=== PATIENT | female | born 1970 | race Caucasian/White ===

== ENCOUNTER 2020-02-19 13:00 | Outpatient (RCR) | payer BC, SELFPAY | END 2020-02-19 23:55 | disposition home or self-care (01) | LOC: HO.PAOS 13:00 | PROVIDERS: Visit Provider Counselor Mental Health | DX: F31.81 Bipolar II disorder (principal); F10.21 Alcohol dependence, in remission | CPT/HCPCS: 90834 ==

== ENCOUNTER 2020-03-07 13:36 | Outpatient (REF) | payer BC, SELFPAY | END 2020-03-07 13:37 | disposition home or self-care (01) | LOC: HO.LAB 13:36 | PROVIDERS: PCP Internal Medicine; Visit Provider Internal Medicine | DX: Z20.828 Contact with and (suspected) exposure to other viral communicable diseases (principal) | CPT/HCPCS: C9803; U0003 ==

== ENCOUNTER 2020-03-14 15:47 | Outpatient (REF) | payer BC, SELFPAY | END 2020-03-14 15:48 | disposition home or self-care (01) | LOC: HO.LAB 15:47 | PROVIDERS: Visit Provider Internal Medicine | DX: Z20.828 Contact with and (suspected) exposure to other viral communicable diseases (principal) | CPT/HCPCS: C9803; U0003 ==

== ENCOUNTER 2020-07-02 14:19 | Outpatient (REF) | payer BC, SELFPAY ==
--- NOTE | ~2020-07-02 | XR_ITS ---
EXAMINATION: XR HIP, RIGHT CLINICAL INFORMATION: Pain right hip COMPARISON: None TECHNIQUE: Frontal view pelvis and AP and frog-lateral projections right hip are obtained for 3 views. FINDINGS: Bony mineralization appears normal. The pelvis shows no fracture or destructive process. The SI joints and pubis show no diastases. There may be degenerative disc changes at the lumbosacral junction. There are calcified phleboliths lower right pelvis. Bowel gas unremarkable. Soft tissue planes about the bilateral hips is symmetric. Right hip shows no fracture or dislocation or destructive process. No focal joint narrowing or erosive change or chondrocalcinosis. There is small bone island trochanteric region. Punctate mineralization adjacent to the lesser trochanter may be related to calcific tendinosis ileus psoas. Femoral artery, there are 2 punctate mineralization adjacent to right ischial tuberosity which may represent calcific tendinosis hamstrings. XR/XR hip RT w PEL1V IMPRESSION: 1. Probable degenerative disc changes lumbosacral junction. 2. Punctate mineralization at right hip lesser trochanter and adjacent to the ischial tuberosity which may be related to calcific tendinosis.
== END 2020-07-02 14:20 | disposition home or self-care (01) ==
LOC: HO.HOSX 14:19
PROVIDERS: Visit Provider Orthopaedic Surgery
DX: M25.551 Pain in right hip (principal)
CPT/HCPCS: 73502

== ENCOUNTER → 2020-07-03 10:07 | Outpatient (BNVA) | payer BC, SELFPAY | PROVIDERS: PCP Internal Medicine; Visit Provider Orthopaedic Surgery | DX: M25.551 Pain in right hip (principal) ==

== ENCOUNTER → 2022-04-01 14:20 | Outpatient (BNVA) | payer OTHER, SELFPAY | PROVIDERS: PCP Internal Medicine; Visit Provider Physician Assistant Medical | DX: Z77.21 Contact with and (suspected) exposure to potentially hazardous body fluids (principal) | CPT/HCPCS: 36415; 84450; 84460; 86706; 86803; 87389; 99204 ==

== ENCOUNTER 2023-03-25 10:18 | Emergency (ER) | payer BC, SELFPAY ==
--- NOTE | ~2023-03-25 | CT_ITS ---
CT HEAD WITHOUT IV CONTRAST CT CERVICAL SPINE WITHOUT IV CONTRAST CT MAXILLOFACIAL WITHOUT IV CONTRAST INDICATION: Head injury. Pain. COMPARISON: None available TECHNIQUE: Multidetector CT acquisitions of the head, maxillofacial region, and cervical spine were obtained without IV contrast. Multiplanar reformats were acquired and utilized for image interpretation. This CT examination was performed using dose optimization techniques as appropriate, variously including the following: *Automated exposure control *Adjustment of mA and/or kV according to patient size (this includes techniques or standardized protocols for targeted exams where dose is matched to indication/reason for exam; i.e. extremities or head) *Use of iterative reconstruction technique FINDINGS: HEAD: There is no intracranial hemorrhage, hydrocephalus, extra-axial surface collection, midline shift, or other herniation pattern. Glynn to white matter differentiation is diffusely maintained without evidence of an evolved acute territorial infarct. The basilar cisterns are preserved. No significant soft tissue abnormality. No acute osseous abnormality. The paranasal sinuses and the mastoid air cells are well aerated. MAXILLOFACIAL: There are probable chronic nasal bone fractures without overlying soft tissue swelling that can be clinically correlated. No definite acute maxillofacial fractures. CERVICAL SPINE: Reversal the cervical lordosis. The vertebral body heights are maintained. There is moderate to severe disc volume loss and endplate spurring at C5-C6 and C6-C7. There are no acute fractures and there are no acute subluxations. There is advanced left-sided hypertrophic facet arthropathy at C7-T1. The craniocervical junction is unremarkable. CT/CT facial bones wo IV con IMPRESSION: - No acute intracranial abnormality. - No acute osseous abnormality within the cervical spine. Cervical spondylosis. - There are probable chronic nasal bone fractures without overlying soft tissue swelling that can be clinically correlated. No definite acute maxillofacial fractures.
--- NOTE | ~2023-03-25 | CT_ITS ---
CT HEAD WITHOUT IV CONTRAST CT CERVICAL SPINE WITHOUT IV CONTRAST CT MAXILLOFACIAL WITHOUT IV CONTRAST INDICATION: Head injury. Pain. COMPARISON: None available TECHNIQUE: Multidetector CT acquisitions of the head, maxillofacial region, and cervical spine were obtained without IV contrast. Multiplanar reformats were acquired and utilized for image interpretation. This CT examination was performed using dose optimization techniques as appropriate, variously including the following: *Automated exposure control *Adjustment of mA and/or kV according to patient size (this includes techniques or standardized protocols for targeted exams where dose is matched to indication/reason for exam; i.e. extremities or head) *Use of iterative reconstruction technique FINDINGS: HEAD: There is no intracranial hemorrhage, hydrocephalus, extra-axial surface collection, midline shift, or other herniation pattern. Glynn to white matter differentiation is diffusely maintained without evidence of an evolved acute territorial infarct. The basilar cisterns are preserved. No significant soft tissue abnormality. No acute osseous abnormality. The paranasal sinuses and the mastoid air cells are well aerated. MAXILLOFACIAL: There are probable chronic nasal bone fractures without overlying soft tissue swelling that can be clinically correlated. No definite acute maxillofacial fractures. CERVICAL SPINE: Reversal the cervical lordosis. The vertebral body heights are maintained. There is moderate to severe disc volume loss and endplate spurring at C5-C6 and C6-C7. There are no acute fractures and there are no acute subluxations. There is advanced left-sided hypertrophic facet arthropathy at C7-T1. The craniocervical junction is unremarkable. CT/CT cervical spine wo IV con IMPRESSION: - No acute intracranial abnormality. - No acute osseous abnormality within the cervical spine. Cervical spondylosis. - There are probable chronic nasal bone fractures without overlying soft tissue swelling that can be clinically correlated. No definite acute maxillofacial fractures.
[2023-03-25 10:25] VITALS: BP 133/75; PULSE 83; RESP 18; TEMP 36.6; O2SAT 99; BMI 20.2
--- NOTE | 2023-03-25 10:29 | ECG_ITS ---
Test Reason : syncope Blood Pressure : / mmHG Vent. Rate : 068 BPM Atrial Rate : 068 BPM P-R Int : 128 ms QRS Dur : 084 ms QT Int : 382 ms P-R-T Axes : 070 059 076 degrees QTc Int : 406 ms Normal sinus rhythm Normal ECG When compared with ECG of 24-OCT-2019 14:03, No significant change was found Referred By: Generic ED Physician Electronically Signed By:ABRAHAM RAHMAN MD
[2023-03-25 10:42] LABS: MANUAL DIFF FLAG NO
[2023-03-25 10:50] LABS: Basophils Percent Auto 0.4 % (0-2); Eosinophils Absolute Auto 0.1 X10*3/uL (0.0-0.4); Eosinophils Percent Auto 1.2 % (0-4); Hematocrit 43.6 % (37.0-47.0); Hemoglobin 14.3 g/dl (12.0-16.0); Imm Gran Abs Auto 0.03 X10*3/uL (0.00-0.03); Imm Gran Pct Auto 0.4 % (0.0-0.4); Lymphocytes Absolute Auto 1.5 X10*3/uL (1.2-4.9); Lymphocytes Percent Auto 20.8 % (20-40); Mean Corpuscular HGB Conc 32.8 g/dl (31.0-35.0); Mean Corpuscular Hemoglobin 28.9 pg (27.0-33.0); Mean Corpuscular Volume 88.3 fL (80.0-98.0); Mean Platelet Volume 9.3 fL (9.4-12.3); Monocytes Absolute Auto 0.4 X10*3/uL (0.1-1.2); Monocytes Percent Auto 5.5 % (2-11); Neutrophils Absolute Auto 5.2 x10*3/uL (2.0-8.3); Neutrophils Percent Auto 71.7 % (45-73); Platelet Count 245 X10*3/uL (160-400); Red Blood Count 4.94 X10*6/uL (4.20-5.50); Red Cell Distribution Width 13.2 % (11.0-16.0); White Blood Count 7.3 X10*3/uL (4.8-10.8)
[2023-03-25 10:58] LABS: Anion Gap 12 (12-20); Blood Urea Nitrogen 15 mg/dL (9-16); Calcium 10.2 mg/dL (8.4-10.2); Carbon Dioxide 28 mmol/L (22-29); Chloride 104 mmol/L (96-108); Creatinine Clr Calc Pharmacy 64.4; Estimated Glomerular Filt Rate > 60; Glucose Random 79 mg/dL (60-115); Sodium 140 mmol/L (135-145)
[2023-03-25 11:06] LABS: Troponin-I High Sensitivity < 2.7 ng/L (<3.5-17.0)
--- NOTE | 2023-03-25 11:17 | PC.NURSE ---
PT STATES THAT SHE GOT UP TO USE THE BATHROOM LEFT TO GO TO THE KITCHEN AND WOKE UP ON THE FLOOR. PT STATES THAT THE LAST TIME THIS HAPPENED WAS 3 YRS AGO. PT STATES THAT SPOUSE AND KIDS WERE AT HOME IN BED AT THE TIME. PT WOKE UP ON THE L SIDE OF HER HEAD. PT HAS BLOOD OVER HER R EYEBROW/HEMATOMA AND L FOREHEAD HEMATOMA.
[2023-03-25 11:21] VITALS: PULSE 70; O2SAT 97
--- NOTE | 2023-03-25 11:38 | ED.GENADULT ---
HPI - General Adult General Chief complaint: Syncope Stated complaint: head inj fall at home Time Seen by Provider: 03/25/23 11:37 Source: patient Mode of arrival: ambulatory Limitations: no limitations History of Present Illness HPI narrative: Patient is a 52 year old assigned female at with no reported medical history presenting to the emergency department today after a syncopal episode. Patient states that she woke up to use the bathroom, had a bowel movement, stood up and passed out. Patient states that she hit her face on the floor and is having a headache. Patient denies any dizziness, lightheadedness, abdominal pain, nausea, vomiting, fever, chills, blurry vision, double vision, loss of vision, chest pain, difficulty breathing, shortness of breath, back pain, night sweats, pain with urination, increased urinary frequency, increased urinary urgency, blood in her urine or stool, bowel incontinence, bladder incontinence, bowel retention, bladder retention, or any other complaints at this time. Onset (ago): hour(s) Location: head and face Severity: mild Severity scale (1-10): 3 Relieving factors: none Exacerbating factors: none Associated symptoms: syncope Treatments prior to arrival: none Related Data Home Medications Medication Instructions Recorded Confirmed gabapentin 100 mg capsule 100 mg PO BEDTIME 07/03/20 lamotrigine 25 mg tablet (Lamictal) 25 mg PO Q OTHER DAY 07/03/20 ziprasidone HCl 20 mg capsule 20 mg PO BID 07/03/20 (Geodon) Allergies Allergy/AdvReac Type Severity Reaction Status Date / Time No Known Allergies Allergy Verified 03/25/23 10:25 [No Known Allergies*] Review of Systems Constitutional: Constitutional: Reports no additional constitutional complaints, Denies chills, Denies fever(s), Reports headache(s) and Denies night sweats Eyes: Eyes: Reports no additional eye complaints, Denies blurry vision, Denies change in vision, Denies diplopia, Denies eye discharge and Denies loss of vision ENT: Denies dizziness and Reports headache(s) Cardiovascular: Cardiovascular: Reports no additional cardiovascular complaints, Denies chest pain, Denies lightheadedness, Denies Loss of Consciousness and Denies dyspnea Respiratory: Respiratory: Reports no additional respiratory complaints and Denies dyspnea Gastrointestinal: Gastrointestinal: Reports no additional gastrointestinal complaints, Denies abdominal pain, Denies melena, Denies hematochezia, Denies change in bowel habits and Denies change in stool character Genitourinary: Genitourinary: Denies hematuria, Denies urinary frequency, Denies dysuria, Denies urinary incontinence, Denies urinary hesitancy and Denies urinary urgency Musculoskeletal: Musculoskeletal: Reports no additional musculoskeletal complaints, Denies numbness and Denies tingling Neurologic: Denies dizziness, Reports headache(s), Denies loss of vision, Denies numbness and Denies tingling Psychiatric: Psychiatric: Reports no additional psychiatric complaints Endocrine: Endocrine: Reports no additional endocrine complaints Hematologic/Lymphatic: Hematologic/Lymphatic: Reports no additional hematologic/lymphatic complaints Allergic/Immunologic: Allergic/Immunologic: Reports no additional allergic/immunologic complaints [facility] Past Medical History Attestation statement: The following information was validated with the patient. Source: old records reviewed and nursing notes reviewed Medical History Depression Bilateral hip pain Social History Social History Smoked in Last 30 Days: No Use of substances other than those prescribed or required for medical reasons: No Advance Directives: No Advance Directives Information Provided: No Patient : No Current occupational status: employed Current occupation: R.N/ rt hand Physical Exam ED Vital Signs: Vital Signs - 24 hr 03/25/23 10:25 03/25/23 11:21 03/25/23 12:38 Temperature 97.8 F 98.5 F Pulse Rate 83 61 Respiratory Rate 18 16 Blood Pressure 133/75 120/73 Pulse Oximetry 99 97 96 Oxygen Delivery Method Room Air Room Air Room Air 03/25/23 14:32 Temperature 98.7 F Pulse Rate 60 Respiratory Rate 16 Blood Pressure 116/71 Pulse Oximetry 95 Oxygen Delivery Method Room Air BMI result Body Mass Index 20.2 Const General: cooperative, no acute distress, alert and awake Nutritional Appearance: well nourished Orientation/consciousness: patient oriented x3 Limitations: no limitations HENMT Ears: hearing grossly normal bilaterally and external ears normal General nose exam: Normal external nose present, no nasal discharge noted and no epistaxis Face and sinus: Yes abrasion (to the corner of the right upper eye lid) Mouth: Normal oral and palatal mucosa present, no drooling and no muffled voice Eyes General: appearance normal, both eyes and all related structures Periorbital: periorbital findings normal Eyelids: Yes eyelids normal Conjunctivae: conjunctivae normal Pupils: Equal, round and reactive pupils present EOM: EOMs intact bilaterally Neck Neck: Yes normal visual inspection, Yes full ROM and Yes no lymphadenopathy Chest Chest palpation & inspection: normal inspection of the chest Resp Effort & Inspection: normal respiratory effort and able to speak in complete sentences GI Inspection: Yes normal to inspection Neuro General: patient oriented x3 and moves all extremities Cranial nerves: Yes Equal, round and reactive pupils present Cognition (Neuro): normal cognition Motor exam (neuro): 5/5 motor strength present throughout Sensory Exam: Normal double simultaneous stimulation for sensation Coordination: [id number] test normal Extrem General: Yes normal to inspection, Yes full ROM and Yes capillary refill normal Psych Appearance: grossly normal Mental Status: mental status grossly normal Affect: normal affect Attitude: cooperative Thought process: Normal thought process present Thought content: Normal thought content present Insight: Good insight present (Psych) Medical Decision Making Medical Decision Making MDM Narrative: Patient is a 52 year old assigned female at with no reported medical history presenting to the emergency department today with facial pain after a vasovagal syncopal episode. Patient's physical exam was as noted in the physical exam portion of this note. Patient's blood work was unremarkable. Patient's EKG was unremarkable. Patient's head, C-Spine, and facial CTs showed no acute process. I explained my physical exam findings as well as all test results to the patient. I answered all questions asked by the patient. I stressed the importance of the patient taking her medication as prescribed. I stressed the importance of the patient following up with her primary care provider. I stressed the importance of the patient returning to the emergency department immediately if her symptoms were to worsen or if she were to develop any dizziness, shortness of breath, difficulty breathing, chest pain, blurry vision, loss of vision, nausea, vomiting, abdominal pain, fever, chills, back pain, or any other complaints. Patient verbalized agreement and understanding with this treatment plan and discharge. Differential Diagnosis Differential Diagnoses: The differential diagnosis associated with the presentation includes Fall Syncope Vasovagal syncope Facial trauma Concussion Admission/Observation Consideration of admission/observation: Escalation of care including admission/observation considered Patient would have been admitted to the hospital had her work up had any findings where hospital admission was appropriate and her clinical presentation warranted hospital admission. Lab Data MDM Lab Attestation statement: I reviewed the patient's lab results. My interpretation of these studies and their corresponding values is that they are grossly normal. 03/25/23 10:37 03/25/23 10:37 Labs: Lab Results 03/25/23 03/25/23 Range/Units 10:37 12:06 WBC 7.3 (4.8-10.8) X10*3/uL RBC 4.94 (4.20-5.50) X10*6/uL Hgb 14.3 (12.0-16.0) g/dl Hct 43.6 (37.0-47.0) % MCV 88.3 (80.0-98.0) fL MCH 28.9 (27.0-33.0) pg MCHC 32.8 (31.0-35.0) g/dl RDW 13.2 (11.0-16.0) % Plt Count 245 (160-400) X10*3/uL MPV 9.3 L (9.4-12.3) fL Immature Gran % (Auto) 0.4 (0.0-0.4) % Neut % (Auto) 71.7 (45-73) % Lymph % (Auto) 20.8 (20-40) % Lea % (Auto) 5.5 (2-11) % Eos % (Auto) 1.2 (0-4) % Baso % (Auto) 0.4 (0-2) % Lymph # (Auto) 1.5 (1.2-4.9) X10*3/uL Lea # (Auto) 0.4 (0.1-1.2) X10*3/uL Eos # (Auto) 0.1 (0.0-0.4) X10*3/uL Baso # (Auto) 0.0 (0.0-0.2) X10*3/uL Abs Immat Gran (auto) 0.03 (0.00-0.03) X10*3/uL Absolute Neuts (auto) 5.2 (2.0-8.3) x10*3/uL Absolute Nucleated RBC 0.000 (0.0-0.012) X10*3/uL Nucleated RBC % (auto) 0.0 (0.0-0.2) /100WBC Sodium 140 (135-145) mmol/L Potassium 4.0 (3.3-5.1) mmol/L Chloride 104 (96-108) mmol/L Carbon Dioxide 28 (22-29) mmol/L Anion Gap 12 (12-20) BUN 15 (9-16) mg/dL Creatinine 0.86 (0.5-1.4) mg/dL Estim Creat Clear Calc 64.4 Estimated GFR > 60 Random Glucose 79 (60-115) mg/dL Calcium 10.2 (8.4-10.2) mg/dL Troponin I High Sens < 2.7 (<3.5-17.0) ng/L Influenza Type A (PCR) NEGATIVE (Negative) Influenza Type B (PCR) NEGATIVE (Negative) RSV RNA Qual (PCR) NEGATIVE (Negative) SARS-CoV-2 RNA (RT-PCR) NEGATIVE (Negative) Independent Interpretation I performed an independent interpretation of an: EKG and CT Scan Interpretation: My interpretation is in agreement with the radiologist's impression of these imaging studies. CT HEAD WITHOUT IV CONTRAST CT CERVICAL SPINE WITHOUT IV CONTRAST CT MAXILLOFACIAL WITHOUT IV CONTRAST INDICATION: Head injury. Pain. COMPARISON: None available TECHNIQUE: Multidetector CT acquisitions of the head, maxillofacial region, and cervical spine were obtained without IV contrast. Multiplanar reformats were acquired and utilized for image interpretation. This CT examination was performed using dose optimization techniques as appropriate, variously including the following: *Automated exposure control *Adjustment of mA and/or kV according to patient size (this includes techniques or standardized protocols for targeted exams where dose is matched to indication/reason for exam; i.e. extremities or head) *Use of iterative reconstruction technique FINDINGS: HEAD: There is no intracranial hemorrhage, hydrocephalus, extra-axial surface collection, midline shift, or other herniation pattern. Glynn to white matter differentiation is diffusely maintained without evidence of an evolved acute territorial infarct. The basilar cisterns are preserved. No significant soft tissue abnormality. No acute osseous abnormality. The paranasal sinuses and the mastoid air cells are well aerated. MAXILLOFACIAL: There are probable chronic nasal bone fractures without overlying soft tissue swelling that can be clinically correlated. No definite acute maxillofacial fractures. CERVICAL SPINE: Reversal the cervical lordosis. The vertebral body heights are maintained. There is moderate to severe disc volume loss and endplate spurring at C5-C6 and C6-C7. There are no acute fractures and there are no acute subluxations. There is advanced left-sided hypertrophic facet arthropathy at C7-T1. The craniocervical junction is unremarkable. CT/CT head/brain wo IV con IMPRESSION: - No acute intracranial abnormality. - No acute osseous abnormality within the cervical spine. Cervical spondylosis. - There are probable chronic nasal bone fractures without overlying soft tissue swelling that can be clinically correlated. No definite acute maxillofacial fractures. Dictated By: Jose Antonio Aviles MD Signed By: Electronically signed by Jose Antonio Aviles MD 03/25/23 1535 Vent. Rate: 068 BPM Atrial Rate: 068 BPM P-R Int: 128 ms QRS Dur: 084 ms QT Int: 382 ms P-R-T Axes: 070 059 076 degrees QTc Int: 406 ms Normal sinus rhythm Normal ECG When compared with ECG of 24-OCT-2019 14:03, No significant change was found DD/ [id number] Radiology Impression Discussion of test interpretation with radiology: I have reviewed the radiologist's reading. Discharge Plan Discharge Clinical Impression: Fall, Syncope, Concussion Patient Disposition: Home, Self-Care Instructions: Fall Prevention (ED), Concussion (ED), Syncope (DC) Additional Instructions: Follow up with your primary care provider. Return to the emergency department immediately if your symptoms worsen or if you develop any dizziness, shortness of breath, difficulty breathing, chest pain, blurry vision, loss of vision, nausea, vomiting, abdominal pain, fever, chills, back pain, or any other complaints. Referrals: Manuel Amaya, [Primary Care Provider] - Stand Alone Forms: Work/School Release Print Language: Azeri
[2023-03-25 12:38] VITALS: BP 120/73; PULSE 61; RESP 16; TEMP 36.9; O2SAT 96
[2023-03-25 13:30] LABS: Influenza A PCR NEGATIVE (Negative); Influenza B PCR NEGATIVE (Negative); Resp Syncy Virus RNA Qual PCR NEGATIVE (Negative); SARS COV2 PCR INHOUSE NEGATIVE (Negative)
[2023-03-25 14:32] VITALS: BP 116/71; PULSE 60; RESP 16; TEMP 37.1; O2SAT 95
[2023-03-25] MEDS: Acetaminophen 325 MG TABLET 975 MG PO (16:09)
== END 2023-03-25 16:24 | disposition home or self-care (01) ==
PROVIDERS: Physician Assistant Medical; Emergency Provider Emergency Medicine Emergency Medical Services; PCP Pediatrics
DX: S06.0X0A Concussion without loss of consciousness, initial encounter (principal); R55 Syncope and collapse; M54.2 Cervicalgia; R51.9 Headache, unspecified; W01.0XXA Fall on same level from slipping, tripping and stumbling without subsequent striking against object, initial encounter; Y93.9 Activity, unspecified; Y92.9 Unspecified place or not applicable; Y99.9 Unspecified external cause status; Z20.822 Contact with and (suspected) exposure to COVID-19; Z20.828 Contact with and (suspected) exposure to other viral communicable diseases; Z79.899 Other long term (current) drug therapy
CPT/HCPCS: 0241U; 36415; 70450; 70486; 72125; 80048; 84484; 85025; 93005; 99284; 99285

== ENCOUNTER → 2023-03-25 10:29 | Outpatient (BNV) | payer BC, SELFPAY | PROVIDERS: Emergency Provider Emergency Medicine Emergency Medical Services; PCP Pediatrics; Visit Provider Internal Medicine Cardiovascular Disease | DX: R55 Syncope and collapse (principal) | CPT/HCPCS: 93010 ==